=== PATIENT | male | born 1955 | race Caucasian/White ===

== ENCOUNTER 2018-03-17 08:00 | Day surgery (SDC) | payer BC ==
[2018-03-16 17:35] VITALS: BMI 29.2
[~2018-03-17] VITALS: Ht 182.9 cm; Wt 101.9 kg
[2018-03-17] VITALS (8 sets, daily range): BP systolic 118–148; BP diastolic 67–93; PULSE 64–77; RESP 16–18; Ht 182.9 cm; Wt 101.9 kg
[~2018-03-17 08:00] MED LIST: CEFAZOLIN 1 GM INJ ONE; CEFAZOLIN 2 GM/50 ML (PMX) 50 ML IVPB ONE; SEVOFLURANE 15 MIN ONE; SOD CHLORIDE 0.9% 1,000 ML IV SCH
[2018-03-17] MEDS ORDERED: FLUT16SP17 NASAL (09:07)
[2018-03-17] MEDS ORDERED: OMEP20CA16 PO (09:07)
[2018-03-17] MEDS ORDERED: AZEL137S9 NASAL (09:07)
[2018-03-17] MEDS ORDERED: CIME300T14 PO (09:08)
[2018-03-17] MEDS ORDERED: LACT1CAP56 PO (09:08)
--- NOTE | 2018-03-17 10:24 | PREAC ---
Date/Time of Note Date/Time of Note DATE: 03/17/18 TIME: 10:22 Anesthesia Eval and Record Evaluation Time Pre-Procedure Interview DATE: 03/17/18 TIME: 10:22 Age 62 Sex male NPO: 8 hrs Preoperative diagnosis Ventral hernia Planned procedure Laparoscopic ventral hernia repair Past Medical History Past Medical History: Includes Endo: Other (Vitamine deficiency) GI: Obesity Surgery & Anesthesia Issues No known issue Meds Anticoagulation: No Beta Allie within 24 hr: No Reason Beta Allie not given: Pt. not on B-Allie Reported Medications Lactobacillus Combo No.11 (Probiotic) 1 Each Cap.sprink, 1 CAP PO DAILY, CAP 03/17/18 Cimetidine* (Cimetidine*) 300 Mg Tablet, 300 MG PO BID PRN for PRN, TAB 03/17/18 Omeprazole* (Omeprazole*) 20 Mg Capsule.dr, 20 MG PO AC BREAKFAST, #30 CAP 03/17/18 Azelastine Hcl* (Azelastine Hcl*) 137 Mcg/0.137 Ml Purlear.pump, 1 SPRAY NASAL BID, #1 EA TO EACH NOSTRIL 03/17/18 Fluticasone Propionate* (Fluticasone Propionate* Nasal) 50 Mcg/Purlear - 16 Gm Purlear.susp, 1 SPRAY NASAL DAILY, #1 BOTTLE TO EACH NOSTRIL 03/17/18 Current Medications Sodium Chloride 1,000 ml @ 75 mls/hr [id number] IV ; Start 03/17/18 at 08:00; Stop 03/17/18 at 21:19 Meds reviewed: Yes Allergies Coded Allergies: No Known Drug Allergies (Verified Allergy, Unknown, 03/17/18) Allergies Reviewed: Yes Labs/Studies Labs Reviewed: Reviewed by anesthesiologist test: N/A Pre-procedure Exam Last vitals Vital Signs Date Temp Pulse Resp B/P (MAP) Pulse Ox O2 O2 Flow FiO2 Time Delivery Rate 03/17/18 97.4 64 18 127/67 97 Room Air 09:38 (87) Airway: Adequate mouth opening Mallampati: Mallampati II Teeth: Normal Lung: Normal Heart: Normal ASA Physical Status ASA physical status: 2 Emergency: None Planned Anesthetic General/MAC: ETT Planned Pain Management Parenteral pain med Pre-operative Attestations Prior to commencing anesthesia and surgery, the patient was re-evaluated, there was verification of: *The patient's identity *The results of appropriate recent lab work and preoperative vital signs *The above evaluation not changing prior to induction *Anesthetic plan, risk benefits, alternative and complications discussed with patient/family; questions answered; patient/family understands, accepts and wishes to proceed. KARYNA NESS MD Mar 17, 2018 10:24
[2018-03-17] MEDS ORDERED: OXYCODONE/ACETAMINOPHEN (5/325) TAB PO PRN ×2 (10:30)
[2018-03-17] MEDS ORDERED: METOCLOPRAMIDE 10 MG INJ IV PRN (10:30)
[2018-03-17] MEDS ORDERED: MIDAZOLAM 1 MG/ML 2 ML INJ IV PRN (10:30)
[2018-03-17] MEDS ORDERED: DIPHENHYDRAMINE 50 MG INJ IV PRN (10:30)
[2018-03-17] MEDS ORDERED: HYDROmorphONE 1 MG/5 ML IV SYRINGE IV PRN ×3 (10:30)
[2018-03-17] MEDS ORDERED: MEPERIDINE 25 MG INJ IV PRN (10:30)
[2018-03-17] MEDS ORDERED: ONDANSETRON 4 MG INJ IV PRN (10:30)
[2018-03-17] MEDS ORDERED: FENTAnyl 50 MCG/ML VIAL IV PRN ×2 (10:30)
[2018-03-17] MEDS ORDERED: NEOSTIGMINE 3 MG/3 ML SYRINGE ONE (10:34)
[2018-03-17] MEDS ORDERED: LIDOCAINE 2% (SDV) 5 ML INJ ONE (10:34)
[2018-03-17] MEDS ORDERED: GLYCOPYRROLATE 0.4 MG INJ ONE (10:34)
[2018-03-17] MEDS ORDERED: ROCURONIUM 50 MG INJ ONE (10:34)
[2018-03-17] MEDS ORDERED: PROPOFOL 20 ML ONE (10:34)
[2018-03-17] MEDS ORDERED: SUCCINYLCHOLINE CHLORIDE 100 MG/5 ML SYG IV ONE (10:34)
[2018-03-17] MEDS ORDERED: MEPERIDINE 100 MG INJ ONE (10:35)
[2018-03-17] MEDS ORDERED: BUPIVACAINE 0.25% (MPF) 30 ML INJ ONE (10:45)
[2018-03-17] MEDS ORDERED: POLYMYXIN/BACITRACIN 1L IRRIG ONE (10:45)
--- NOTE | 2018-03-17 11:44 | OPR ---
Date/Time of Note Date/Time of Note DATE: 03/17/18 TIME: 11:41 Operative Report Procedure Date: Mar 17, 2018 Preoperative Diagnosis incarcerated ventral hernia Postoperative Diagnosis same Operation/Procedure Performed 1. laparoscopic incarcerated ventral hernia repair 2. implantation of 15 cm x 15 cm bard soft mesh 3. therapeutic injection of subcutaneous local anesthesia Surgeon see signature line [employer] none Anesthesia Type: general Estimated Blood Loss: 10 - 50 ml's Transfusion none Specimen none Grafts/Implants none Complications none Pt Condition Post Procedure: stable Indications This is a 52-year-old male with an incarcerated ventral hernia. He requires surgical repair. Risks alternatives benefits and personnel were discussed the patient. Potential complications including but not limited to bleeding infection mesh infection recurrence of hernia intra-abdominal organ injury need for additional surgeries were discussed the patient. Patient expresses understanding consents to the operation. Procedure Description Patient is taken to the OR and prepped and draped in usual sterile fashion. Surgical time was performed. IV antibiotics given. Left upper quadrant 5 mm transverse incision at the 15 blade. Using a 5 mm optical trocar optical entry is performed. Pneumoperitoneum is established. Left flank 12 mm optical trocar was placed under direct position. Left lower quadrant 5 mm optical trochars were placed under direct visualization. Upon initial inspection there is incarcerated contents into the ventral hernia. Using laparoscopic harmonic laparoscopic lysis of adhesions is performed in the incarcerated ventral hernia contents. This was then extracted and reduced manually. This fat is then reduced and removed through the left flank port. The hernia defect is identified. A small supraumbilical transverse incision is made with a stab incision by a 15 blade. Using Endo Close and #1 Vicryl interrupted #1 Vicryl was placed laparoscopically using laparoscopic techniques and Endo Close to close the primary defect. Underlay mesh with 15 x 15 cm Bard soft mesh is secured in place with secure strap with approximate 4-5 cm of coverage in all directions. Good hemostasis established. Ports removed under direct position. Skin is closed using skin stephanie. Therapeutic subcutaneous local anesthesia was injected at the incision site. Dry dressings were applied. Derik GARZA Mar 17, 2018 11:44
[2018-03-17] MEDS ORDERED: HYDROCODONE/APAP (5/325) TAB PO ONE (12:00)
[2018-03-17] MEDS: FENTAnyl 50 MCG/ML VIAL IV PRN ×2 (12:10→12:15)
--- NOTE | 2018-03-17 12:26 | PAC ---
Date/Time of Note Date/Time of Note DATE: 03/17/18 TIME: 12:26 Post-Anesthesia Notes Post-Anesthesia Note Last documented vital signs Vital Signs Date Temp Pulse Resp B/P (MAP) Pulse Ox O2 O2 Flow FiO2 Time Delivery Rate 03/17/18 98.1 12:12 03/17/18 68 16 132/83 97 Nasal 2.0 12:04 (99) Cannula Activity: WNL Respiratory function: WNL Cardiovascular function: WNL Mental status: Baseline Pain reasonably controlled: Yes Hydration appropriate: Yes Nausea/Vomiting absent: Yes KARYNA NESS MD Mar 17, 2018 12:26
== END 2018-03-17 14:30 | disposition home or self-care (01) ==
LOC: SDS 08:00
PROVIDERS: ATTEND Surgery
DX: K43.9 Ventral hernia without obstruction or gangrene (principal)
CPT/HCPCS: 49653; J0690; J2175; J2405; J2710; J3010